=== PATIENT | female | born 1950 | race Caucasian/White ===

== ENCOUNTER 2020-06-10 02:29 | Emergency (ER) | payer BC ==
[2020-06-10] MEDS ORDERED: OXYMETAZOLINE HCL 0.05% 15ML NAS ONE (03:55)
[2020-06-10] MEDS ORDERED: SILVER NITRATE 1 APPL TOP ONE (04:19)
--- NOTE | 2020-06-10 05:04 | ER ---
Nurse's Notes [facility] Name: Vera Desai Age: 69 yrs Sex: Female : 1950 Arrival Date: 06/10/2020 Time: 02:29 Bed 18 Private MD: Diagnosis: Epistaxis Presentation: 06/10 03:23 Chief complaint: Patient states: Nose bleed started two hour ago. Never had a problem ao like this. Coronavirus screen: Client denies travel out of the [place] in the last 14 days. At this time, the client does not indicate any symptoms associated with coronavirus-19. Ebola Screen: Patient negative for fever greater than or equal to 101.5 degrees Fahrenheit, and additional compatible Ebola Virus Disease symptoms Patient denies exposure to infectious person. Patient denies travel to an Ebola-affected area in the 21 days before illness onset. Initial Sepsis Screen: Does the patient meet any 2 criteria? No. Patient's initial sepsis screen is negative. Does the patient have a suspected source of infection? No. Patient's initial sepsis screen is negative. Risk Assessment: Do you want to hurt yourself or someone else? Patient reports no desire to harm self or others. Onset of symptoms is unknown. 03:23 Method Of Arrival: Ambulatory ao 03:23 Acuity: BERHANE 3 ao Historical: - Allergies: 03:26 No Known Allergies; ao - Home Meds: 03:26 amlodipine oral [Active]; Pravachol Oral [Active]; irbesartan oral oral [Active]; ao Metformin Oral [Active]; - PMHx: 03:26 Diabetes - NIDDM; Hypertension; Hyperlipidemia; ao - PSHx: 03:26 None; ao - Immunization history:: Adult Immunizations up to date. - Social history:: Smoking status: Patient denies any tobacco usage or history of. Patient/guardian denies using alcohol, street drugs, IV drugs, caffeine. Screenin:26 Abuse screen: Denies threats or abuse. Denies injuries from another. Nutritional ao screening: No deficits noted. Tuberculosis screening: No symptoms or risk factors identified. Fall Risk None identified. Assessment: 03:27 General: Appears in no apparent distress. comfortable, Behavior is calm, cooperative, ao appropriate for age. Pain: Complains of pain in nose. Neuro: Level of Consciousness is awake, alert, obeys commands, Oriented to person, place, time, situation, Appropriate for age Moves all extremities. Full function Speech is normal. Cardiovascular: Heart tones S1 S2 Capillary refill < 3 seconds Patient's skin is warm and dry. Respiratory: Airway is patent Respiratory effort is even, unlabored, Respiratory pattern is regular, symmetrical. GI: Abdomen is non-distended. GI: Abdomen is round. : No signs and/or symptoms were reported regarding the genitourinary system. EENT: Nares with bleeding noted. Derm: Skin is intact, Skin is pink, warm \T\ dry. Skin temperature is warm. Musculoskeletal: No signs and/or symptoms reported regarding the musculoskeletal system. 03:40 Reassessment: Patient appears in no apparent distress at this time. Dr Hein at ao bedside. 04:50 Reassessment: Patient appears in no apparent distress at this time. nose had stop ao bleeding after physician procedure. Vital Signs: 03:17 BP 144 / 94; Pulse 101; Temp 97.8; Pulse Ox 99% on R/A; Weight 97.07 kg; Height 5 ft. 4 tt3 in. (162.56 cm); Pain 0/10; 04:50 BP 126 / 77; Pulse 86; Resp 14; Pulse Ox 99% ; ao 03:17 Body Mass Index 36.73 (97.07 kg, 162.56 cm) tt3 ED Course: 02:29 Patient arrived in ED. cl3 03:22 Avery Hein MD is Attending Physician. [facility] 03:23 Gilbert Turner, RN is Primary Nurse. ao 03:24 Triage completed. ao 03:26 Arm band placed on right wrist. Patient placed in an exam room, on a stretcher, on ao oxygen, Patient notified of wait time. 03:26 Patient has correct armband on for positive identification. Pulse ox on. NIBP on. ao 05:03 Autumn Walker MD is Referral Physician. [facility] 05:17 Assist provider with nosebleed control using Afrin sprays, direct pressure, Bleeding ao from left nare. Set up for procedure. Performed by Avery Hein MD Bleeding stopped. Patient tolerated well. Patient did not have IV access during this emergency room visit. Administered Medications: 03:54 Drug: Afrin Drops (0.05 %) 1 sprays {Note: Done by Dr Hein.} Route: Intranasal; Site: ao both nares; Outcome: 05:04 Discharge ordered by MD. [place] 05:18 Discharged to home ambulatory. ao 05:18 Condition: stable 05:18 Discharge instructions given to patient, Instructed on discharge instructions, follow up and referral plans. Demonstrated understanding of instructions, follow-up care, medications. 05:18 Patient left the ED. ao Signatures: Gilbert Turner RN RN Tomasz Schuler cl3 Avery Hein MD MD 7 Jayden Kimble tt3
--- NOTE | 2020-06-10 05:04 | EDPHYS ---
Physician Documentation [facility] Name: Vera Desai Age: 69 yrs Sex: Female : 1950 Arrival Date: 06/10/2020 Time: 02:29 Bed 18 Private MD: ED Physician Avery Hein HPI: 06/10 03:46 This 69 yrs old Female presents to ER via Ambulatory with complaints of Nose mh7 Bleed. 03:46 The patient presents with a nose bleed, that is apparently anterior, from the left mh7 nare, occurred from an unknown cause, that is intermittent small amount with clots, causative factors include: unknown. Onset: The symptoms/episode began/occurred today, 2.5 hour(s) ago. Modifying factors: The symptoms are alleviated by pressure, the symptoms are aggravated by nothing. Associated signs and symptoms: Loss of consciousness: the patient experienced no loss of consciousness, Pertinent negatives: blurred vision, chest pain, cough, ear ache, fever, lightheadedness, nausea, rhinorrhea, shortness of breath, sore throat, vertigo. Severity of symptoms: At their worst the symptoms were moderate today. 04:21 Severity of symptoms: in the emergency department the symptoms have improved markedly. [facility] Historical: - Allergies: 03:26 No Known Allergies; ao - Home Meds: 03:26 amlodipine oral [Active]; Pravachol Oral [Active]; irbesartan oral oral [Active]; ao Metformin Oral [Active]; - PMHx: 03:26 Diabetes - NIDDM; Hypertension; Hyperlipidemia; ao - PSHx: 03:26 None; ao - Immunization history:: Adult Immunizations up to date. - Social history:: Smoking status: Patient denies any tobacco usage or history of. Patient/guardian denies using alcohol, street drugs, IV drugs, caffeine. ROS: 04:21 Constitutional: Negative for fever, chills, and weight loss, Eyes: Negative for injury, mh7 pain, redness, and discharge, Neck: Negative for injury, pain, and swelling, Cardiovascular: Negative for chest pain, palpitations, and edema, Respiratory: Negative for shortness of breath, cough, wheezing, and pleuritic chest pain, Abdomen/GI: Negative for abdominal pain, nausea, vomiting, diarrhea, and constipation, Back: Negative for injury and pain, : Negative for injury, bleeding, discharge, and swelling, MS/Extremity: Negative for injury and deformity, Skin: Negative for injury, rash, and discoloration, Neuro: Negative for headache, weakness, numbness, tingling, and seizure, Psych: Negative for depression, anxiety, suicide ideation, homicidal ideation, and hallucinations, Allergy/Immunology: Negative for hives, rash, and allergies, Endocrine: Negative for neck swelling, polydipsia, polyuria, polyphagia, and marked weight changes, Hematologic/Lymphatic: Negative for swollen nodes, abnormal bleeding, and unusual bruising. Exam: 04:21 Constitutional: This is a well developed, well nourished patient who is awake, alert, mh7 and in no acute distress. Head/Face: Normocephalic, atraumatic. Eyes: Pupils equal round and reactive to light, extra-ocular motions intact. Lids and lashes normal. Conjunctiva and sclera are non-icteric and not injected. Cornea within normal limits. Periorbital areas with no swelling, redness, or edema. 04:21 Neck: Trachea midline, no thyromegaly or masses palpated, and no cervical lymphadenopathy. Supple, full range of motion without nuchal rigidity, or vertebral point tenderness. No Meningismus. Chest/axilla: Normal chest wall appearance and motion. Nontender with no deformity. No lesions are appreciated. Cardiovascular: Regular rate and rhythm with a normal S1 and S2. No gallops, murmurs, or rubs. Normal PMI, no JVD. No pulse deficits. Respiratory: Lungs have equal breath sounds bilaterally, clear to auscultation and percussion. No rales, rhonchi or wheezes noted. No increased work of breathing, no retractions or nasal flaring. Abdomen/GI: Soft, non-tender, with normal bowel sounds. No distension or tympany. No guarding or rebound. No evidence of tenderness throughout. Back: No spinal tenderness. No costovertebral tenderness. Full range of motion. Skin: Warm, dry with normal turgor. Normal color with no rashes, no lesions, and no evidence of cellulitis. MS/ Extremity: Pulses equal, no cyanosis. Neurovascular intact. Full, normal range of motion. Neuro: Awake and alert, GCS 15, oriented to person, place, time, and situation. Cranial nerves II-XII grossly intact. Motor strength 5/5 in all extremities. Sensory grossly intact. Cerebellar exam normal. Normal gait. Psych: Awake, alert, with orientation to person, place and time. Behavior, mood, and affect are within normal limits. 04:21 ENT: External ear(s): are unremarkable, Nose: External nose: no obvious acute abnormality, Nasal septum: is midline, no septal hematoma appreciated, Nasal mucosa: normal, Turbinates: are normal, abrasion, is not appreciated, bleeding, is seen from the left nare, and is minimal, no septal hematoma is appreciated, small area medial anterior left nare. clotted blood, is not appreciated, nasal drainage, is not appreciated, a foreign body, is not appreciated, laceration, is not appreciated, Mouth: is normal, Posterior pharynx: is normal, Dental exam: normal, Voice: is normal, Breath odor: is normal. Vital Signs: 03:17 BP 144 / 94; Pulse 101; Temp 97.8; Pulse Ox 99% on R/A; Weight 97.07 kg; Height 5 ft. 4 tt3 in. (162.56 cm); Pain 0/10; 04:50 BP 126 / 77; Pulse 86; Resp 14; Pulse Ox 99% ; ao 03:17 Body Mass Index 36.73 (97.07 kg, 162.56 cm) tt3 Procedures: 05:04 Epistaxis treatment: A small amount of bleeding noted from left nare. Treated using [facility] cauterization, silver nitrate, Bleeding stopped. MDM: 03:44 Patient medically screened. [facility] 05:02 Differential diagnosis: foreign body - resolved, foreign body - unresolved, trauma, mh7 epistaxis r/t trauma, spontaneous epistaxis. Data reviewed: vital signs, nurses notes. Data interpreted: Pulse oximetry: on room air is 99 %. Interpretation: normal. Counseling: I had a detailed discussion with the patient and/or guardian regarding: the historical points, exam findings, and any diagnostic results supporting the discharge/admit diagnosis, the need for outpatient follow up, to return to the emergency department if symptoms worsen or persist or if there are any questions or concerns that arise at home. Response to treatment: the patient's symptoms have resolved after treatment, the patient's blood pressure is in an acceptable range, mental status has returned to baseline, the patient no longer shows bradycardia, the patient is not short of breath, the patient is not tachycardic, the patient's pain is gone, the patient's temperature has normalized. Administered Medications: 03:54 Drug: Afrin Drops (0.05 %) 1 sprays {Note: Done by Dr Hein.} Route: Intranasal; Site: ao both nares; Disposition: 05:42 Co-signature as Attending Physician, Avery Hein MD. mh7 Disposition: 06/10/20 05:04 Discharged to Home. Impression: Epistaxis. - Condition is Stable. - Discharge Instructions: Nosebleed, [id number]. - Medication Reconciliation Form, Thank You Letter, Antibiotic Education, Prescription Opioid Use form. - Follow up: Private Physician; When: 1 - 2 days; Reason: Worsening of condition, Recheck today's complaints, Continuance of care, Re-evaluation by your physician. Follow up: Autumn Walker MD; When: 1 - 2 days; Reason: Worsening of condition. - Problem is new. - Symptoms are resolved. Signatures: Gilbert Turner, RN RN Avery Rockwell MD MD mh7 Corrections: (The following items were deleted from the chart) 05:18 05:04 06/10/2020 05:04 Discharged to Home. Impression: Epistaxis. Condition is Stable. ao Forms are Medication Reconciliation Form, Thank You Letter, Antibiotic Education, Prescription Opioid Use. Follow up: Private Physician; When: 1 - 2 days; Reason: Worsening of condition, Recheck today's complaints, Continuance of care, Re-evaluation by your physician. Follow up: Autumn Walker; When: 1 - 2 days; Reason: Worsening of condition. Problem is new. Symptoms are resolved. [facility]
[2020-06-10 05:25] VITALS: TEMP 97.8; O2SAT 99
[2020-06-10 05:26] VITALS: BP 126/77
== END 2020-06-10 05:18 | disposition home or self-care (01) ==
LOC: ER 02:29
PROC: 093K7ZZ Control Bleeding in Nasal Mucosa and Soft Tissue, Via Natural or Artificial Opening (ICD-10-PCS; principal; 2020-06-10)
DX: R04.0 Epistaxis (principal); I10 Essential (primary) hypertension; E11.9 Type 2 diabetes mellitus without complications; E78.5 Hyperlipidemia, unspecified
CPT/HCPCS: 30901; 99284